=== PATIENT | male | born 1965 ===

== ENCOUNTER 2017-11-01 04:45 | Emergency (ER) | payer OTHER ==
--- NOTE | 2017-11-01 05:15 | C.PDOC ---
History Of Present Illness pt woke up with r knee pain, denies any trauma, no f/c/n/v. Painful with weight bearing Time Seen by Provider: 11/01/17 05:14 Chief Complaint (Nursing): Lower Extremity Problem/Injury History Per: Patient History/Exam Limitations: no limitations Onset/Duration Of Symptoms: Hrs Current Symptoms Are (Timing): Still Present Severity: Moderate Pain Scale Rating Of: 5 Recent travel outside of the [place]: No Additional History Per: Patient - Knee Currently Unable To: Bear Weight Past Medical History Reviewed: Historical Data, Nursing Documentation, Vital Signs Vital Signs: Last Vital Signs Temp 97.7 F 11/01/17 05:02 Pulse 76 11/01/17 05:02 Resp 16 11/01/17 05:02 BP 133/87 11/01/17 05:02 Pulse Ox 97 11/01/17 05:38 Family History: States: No Known Family Hx - Social History Hx Alcohol Use: Yes Hx Substance Use: No - Immunization History Hx Influenza Vaccination: No Hx Pneumococcal Vaccination: No Review Of Systems Constitutional: Negative for: Fever, Chills Musculoskeletal: Positive for: Other (knee pain) Skin: Negative for: Rash, Lesions Physical Exam - Physical Exam Appears: Non-toxic Skin: Warm, Dry Extremity: Right: Bony Point Tenderness (medial aspect r knee), Limited ROM To Joint, Painful To Bear Weight (knee), Bilateral: Atraumatic, Normal Color And Temperature Pulses: Left Femoral: Normal, Right Femoral: Normal, Left Dorsalis Pedis: Normal , Right Dorsalis Pedis: Normal Neurological/Psych: Oriented x3 Gait: With Assistance ED Course And Treatment - Laboratory Results Result Diagrams: 11/01/17 05:42 11/01/17 05:42 O2 Sat by Pulse Oximetry: 97 Pulse Ox Interpretation: Normal Disposition Counseled Patient/Family Regarding: Studies Performed, Diagnosis - Disposition Disposition Time: 05:14 Condition: FAIR Forms: [facility] (Malagasy) - Clinical Impression Clinical Impression: Knee pain, right Physician Patient Turnover Patient Signed Over To: Yissel Watson Handoff Comments: pending ct scan , and dispo
[2017-11-01] MEDS ORDERED: Lactated Ringer's 1,000 ML IV ONE (05:36)
[2017-11-01] MEDS ORDERED: Morphine 4 MG/ML VIAL IV ONE (05:36)
[2017-11-01] MEDS ORDERED: Lactated Ringer's 1,000 ML ONE (05:44)
[2017-11-01 05:45] LABS: BASO # 0.1 K/uL (0.0-0.2); BASO % 1.2 % (0.0-2.0); EOS # 0.3 K/uL (0.0-0.7); EOS % 5.6 % (0.0-4.0); HEMATOCRIT 51.3 % (35.0-51.0); LYMPH # 2.1 K/uL (1.0-4.3); LYMPH % 40.9 % (20.0-40.0); MEAN CELL VOLUME 91.5 fL (80.0-94.0); MEAN CORPUSCULAR HEMOGLOBIN 30.5 pg (27.0-31.0); MEAN CORPUSCULAR HGB CONC 33.3 g/dL (33.0-37.0); MEAN PLATELET VOLUME 11.2 fL (7.2-11.7); MONO # 0.6 K/uL (0.0-0.8); MONO % 11.8 % (0.0-10.0); NRBC % 0.1 % (0.0-2.0); RED CELL DISTRIBUTION WIDTH 13.9 % (11.5-14.5); WHITE BLOOD COUNT 5.2 K/uL (4.8-10.8)
[2017-11-01] MEDS ORDERED: Iodixanol 320 MG/ML 100 ML BOTTLE IV ONE (05:50)
[2017-11-01 05:57] LABS: ALB/GLOB RATIO 1.3 (1.0-2.1); ALKALINE PHOSPHATASE 70 U/L (38-126); ALT/SGPT 100 U/L (21-72); AST/SGOT 94 U/L (17-59); BILIRUBIN,TOTAL 0.8 mg/dL (0.2-1.3); BLOOD UREA NITROGEN 7 mg/dL (9-20); CALCIUM 7.9 mg/dl (8.6-10.4); CARBON DIOXIDE 23 mmol/L (22-30); CHLORIDE 107 mmol/L (98-107); GFR AFRICAN-AMERICAN > 60; GLUCOSE,RANDOM 109 mg/dL (75-110); POTASSIUM 3.9 mmol/L (3.6-5.2); SODIUM 141 mmol/L (132-148); TOTAL PROTEIN 7.6 g/dL (6.3-8.3)
--- NOTE | 2017-11-01 07:05 | CT ---
EXAM: CT Right Lower Extremity With Intravenous Contrast, Knee CLINICAL HISTORY: 52 years old, male; Pain; Knee; Right; Additional info: R knee pain. Right knee inner side swelling and pain. Pt. Keep moving TECHNIQUE: Axial computed tomography images of the right knee with intravenous contrast. All CT scans at this facility use one or more dose reduction techniques, viz.: automated exposure control; ma/kV adjustment per patient size (including targeted exams where dose is matched to indication; i.e. head); or iterative reconstruction technique. 535 images are submitted. Coronal and sagittal reformatted images were created and reviewed. CONTRAST: 100 mL of visipaque administered intravenously. COMPARISON: No relevant prior studies available. FINDINGS: Artifacts: Limited due to motion and misregistration artifacts. Bones/joints: No significant joint effusion is identified. No acute fracture. No dislocation. Possible small amount of fluid medial to the lateral retinaculum. Soft tissues: Mild infiltration in the prepatellar subcutaneous soft tissues which can represent contusion versus swelling versus edema. Other findings: There is mild infiltration around medial and lateral retinacula seen on image 57 series 3. These findings can represent strain or contusion. IMPRESSION: 1. Mild infiltration in the prepatellar subcutaneous soft tissues which can represent contusion versus swelling versus edema. 2. There is mild infiltration around medial and lateral retinacula seen on image 55 to 57 series 3. These findings can represent strain or contusion. If clinically indicated MRI characterization can be helpful.
[2017-11-01 08:17] VITALS: BP 134/88; PULSE 74; RESP 18; TEMP 98.7; O2SAT 95
== END 2017-11-01 08:15 | disposition home or self-care (01) ==
LOC: C.ER 04:45
DX: M25.561 Pain in right knee (principal)
CPT/HCPCS: 73701; 80053; 85025; 96374; 96375; 99285; J1885; J2270; J2405; J7120; Q9967